=== PATIENT | male | born 1985 | race Caucasian/White ===

== ENCOUNTER 2016-11-28 08:57 | Day surgery (SDC) | payer BC ==
[2016-11-28] VITALS (7 sets, daily range): BP systolic 121–145; BP diastolic 61–104; PULSE 77–88; TEMP 97.3–97.9
[~2016-11-28] VITALS: Ht 177.8 cm; Wt 106.1 kg
[~2016-11-28 08:57] MED LIST: LORTAB 5/500 501 TAB PO; ZYRTEC10 MG PO
[2016-11-28] MEDS ORDERED: ZYRTEC ALLERGY10 MG PO (09:51)
== END 2016-11-28 11:44 | disposition home or self-care (01) ==
LOC: SDCO 08:57
DX: K21.0 Gastro-esophageal reflux disease with esophagitis (principal); K29.80 Duodenitis without bleeding; R13.12 Dysphagia, oropharyngeal phase
CPT/HCPCS: OP; C1726; J2250; J3010; J7030

== ENCOUNTER 2019-04-04 19:34 | Emergency (ER) | payer SELFPAY ==
[~2019-04-04] VITALS: Ht 177.8 cm; Wt 90.9 kg
[~2019-04-04 19:34] MED LIST changes: +ZYRTEC ALLERGY10 MG PO
[2019-04-04 22:48] VITALS: BP 123/71; PULSE 98; TEMP 99.1
[2019-04-04] MEDS ORDERED: PREDNISONE20 MG PO (22:54)
[2019-04-04] MEDS ORDERED: LEVAQUIN 5500 MG/TA1 PO (22:54)
== END 2019-04-04 23:07 | disposition home or self-care (01) ==
LOC: COL.ER 19:34
DX: J18.1 Lobar pneumonia, unspecified organism (principal); J45.909 Unspecified asthma, uncomplicated; F17.210 Nicotine dependence, cigarettes, uncomplicated; Z88.2 Allergy status to sulfonamides
CPT/HCPCS: J7512

== ENCOUNTER 2022-06-20 06:02 | Emergency (ER) | payer SELFPAY ==
[~2022-06-20] VITALS: Ht 177.8 cm; Wt 86.4 kg
[~2022-06-20 06:02] MED LIST changes: +LEVAQUIN 5500 MG/TA1 PO; +PREDNISONE20 MG PO
[2022-06-20 06:19] VITALS: BP 125/81; TEMP 98.2
[2022-06-20 07:51] VITALS: PULSE 69
== END 2022-06-20 07:51 | disposition home or self-care (01) ==
LOC: COL.ER 06:02
DX: S61.012A Laceration without foreign body of left thumb without damage to nail, initial encounter (principal); F17.210 Nicotine dependence, cigarettes, uncomplicated; Z28.310 Unvaccinated for COVID-19; Z23 Encounter for immunization; W26.0XXA Contact with knife, initial encounter; Y92.59 Other trade areas as the place of occurrence of the external cause; Y99.0 Civilian activity done for income or pay

== ENCOUNTER 2024-04-09 10:25 | Emergency (ER) | payer OTHER ==
[~2024-04-09] VITALS: Ht 177.8 cm; Wt 86.4 kg
[2024-04-09 10:37] VITALS: BP 171/95; TEMP 98.5
[2024-04-09] MEDS ORDERED: Benzocaine Topical 200 (One Second) Sprays/57 GM Bottle MM (11:00)
[2024-04-09] MEDS ORDERED: NORCO 325 MG-51 TAB PO ×2 (12:04→12:09)
[2024-04-09 12:27] VITALS: PULSE 74
== END 2024-04-09 12:27 | disposition home or self-care (01) ==
LOC: COL.ER 10:25
DX: K04.7 Periapical abscess without sinus (principal); F17.200 Nicotine dependence, unspecified, uncomplicated